=== PATIENT | female | born 1980 | race Asian ===

== ENCOUNTER 2018-09-07 10:12 | Emergency (ER) | payer BC ==
[2018-09-07 10:25] VITALS: BP 119/82
--- NOTE | 2018-09-07 10:26 | UC ---
Skin Complaint HPI - HPI Summary HPI Summary: 38 yo female presents with left hand redness and swelling. She tells me that 2 days ago she noticed a bug bite to her left wrist that was very itchy and she scratched at it often. Since that time the redness has spread to her left hand and today noticed it going up her forearm with swelling. She is unsure what bit her. No fevers. - History of Current Complaint Chief Complaint: UCSkin Time Seen by Provider: 09/07/18 10:25 Stated Complaint: SKIN ISSUE Hx Obtained From: Patient Hx Last Menstrual Period: 09/04/18 Onset/Duration: Gradual Onset Onset Severity: Mild Current Severity: Mild Pain Intensity: 2 Pain Scale Used: 0-10 Numeric - Allergy/Home Medications Allergies/Adverse Reactions: Allergies Allergy/AdvReac Type Severity Reaction Status Date / Time No Known Allergies Allergy Verified 09/07/18 10:25 PMH/Surg Hx/FS Hx/Imm Hx - Additional Past Medical History Additional PMH: None - Surgical History Surgical History: None - Family History Known Family History: Positive: None - Social History Occupation: Employed Full-time Lives: With Family Alcohol Use: Weekly Substance Use Type: None Smoking Status (MU): Never Smoked Tobacco Review of Systems All Other Systems Reviewed And Are Negative: Yes Constitutional: Positive: Negative Skin: Positive: Other - Left hand redness and swelling Respiratory: Positive: Negative Cardiovascular: Positive: Negative Neurovascular: Positive: Negative Musculoskeletal: Positive: Negative Neurological: Positive: Negative Psychological: Positive: Negative Physical Exam - Summary Physical Exam Summary: GENERAL: NAD. WDWN. No pain distress. SKIN: LEFT wrist: bug bite at ulnar aspect 2mm. Erythema and mild edema and warmth from left 5th, 4th, and 3rd digit, encompassing the hand down to the wrist. Scant erythema and edema to mid forearm along the ulnar aspect. No drainage, abscess, or FB. Mild TTP. CHEST: No accessory muscle use. Breathing comfortably and in no distress. CV: Pulses intact radial and ulnar. Cap refill <2seconds MSK: FROM left wrist and all fingers. NEURO: Alert. Sensations intact hand and all fingers. PSYCH: Age appropriate behavior. Triage Information Reviewed: Yes Vital Signs: Initial Vital Signs Temp 98 F 09/07/18 10:21 Pulse 88 09/07/18 10:21 Resp 18 09/07/18 10:21 BP 119/82 09/07/18 10:21 Pulse Ox 100 09/07/18 10:21 Vital Signs Reviewed: Yes Course/Dx - Course Course Of Treatment: Cellulitis due to bug bite left wrist/hand. The area was marked with a purple marking pen. Will start her on augmentin and advised that if her symptoms have not improved within 48 hours or if her symptoms worsen to go to the ER. Apply ice to the area. Pt voiced understanding. - Diagnoses Provider Diagnosis: Bug bite of left hand, Cellulitis of left hand Discharge - Sign-Out/Discharge Documenting (check all that apply): Patient Departure All imaging exams completed and their final reports reviewed: No Studies - Discharge Plan Condition: Stable Disposition: HOME Prescriptions: Amoxicillin/Clavulanate TAB* [Augmentin TAB 875*] 875 mg PO BID #20 tab Patient Education Materials: Cellulitis (DC) Referrals: No Primary Care Phys,NOPCP [Primary Care Provider] - Additional Instructions: If you develop a fever, shortness of breath, chest pain, new or worsening symptoms - please call your PCP or go to the ED. If the area of redness does not improve within 2 days or if you develop a fever or worsening symptoms - please go to the ER - Billing Disposition and Condition Condition: STABLE Disposition: Home
== END 2018-09-07 10:44 | disposition home or self-care (01) ==
LOC: UCEAST 10:12
DX: S60.562A Insect bite (nonvenomous) of left hand, initial encounter (principal); L03.114 Cellulitis of left upper limb; W57.XXXA Bitten or stung by nonvenomous insect and other nonvenomous arthropods, initial encounter; Y92.9 Unspecified place or not applicable
CPT/HCPCS: 99212; G0463